=== PATIENT | female | born 1955 ===

== ENCOUNTER 2021-04-13 10:45 | Inpatient (IN) | payer OTHER ==
[~2021-04-13] VITALS: Ht 160 cm; Wt 76.7 kg
[2021-04-13] MEDS ORDERED: PROTONIX40 MG PO (15:13)
[2021-04-13] MEDS ORDERED: PEPCID40 MG PO (15:13)
[2021-04-13] MEDS ORDERED: ALLERGY RELIE15.8 ML NASAL (15:14)
[2021-04-13] MEDS ORDERED: VOLTAREN100 GM TOP (15:14)
[2021-04-13] MEDS ORDERED: CRESTOR40 MG PO (15:14)
[2021-04-19] MEDS ORDERED: CLONAZEPAM1 MG (09:48)
[2021-04-20] MEDS ORDERED: KETO10TA2 PO (14:36)
[2021-04-20] MEDS ORDERED: NEURONTIN300 MG PO (14:37)
== END 2021-04-20 17:55 | disposition home or self-care (01) | DRG 761 ==
LOC: O/R 04-19 06:50 → SURH 04-19 09:45
PROVIDERS: ADMIT Surgery; ATTEND Surgery
PROC: 3E0T3BZ Introduction of Anesthetic Agent into Peripheral Nerves and Plexi, Percutaneous Approach (ICD-10-PCS; 2021-04-19)
PROC: 0JQC3ZZ Repair Pelvic Region Subcutaneous Tissue and Fascia, Percutaneous Approach (ICD-10-PCS; principal; 2021-04-19 09:45)
DX: N81.6 Rectocele (principal); K57.30 Diverticulosis of large intestine without perforation or abscess without bleeding

== ENCOUNTER 2023-04-16 04:45 | Day surgery (SDC) | payer OTHER ==
[~2023-04-16 04:45] MED LIST: ALLERGY RELIE15.8 ML NASAL; CLONAZEPAM1 MG; CRESTO PO; CRESTOR40 MG PO; KETO10TA2 PO; MAGNE PO; NEURONTIN300 MG PO; PEPCID40 MG PO; PROTONIX40 MG PO; VITAMIN D3 PO; VOLTAREN100 GM TOP
[2023-04-16] MEDS ORDERED: MACROBID 100 M100 MG PO (09:18)
[2023-04-16] MEDS ORDERED: TRAM1TAB98 PO (09:19)
== END 2023-04-16 11:10 | disposition home or self-care (01) ==
LOC: CIR.AMB 04:45
PROVIDERS: ATTEND Obstetrics & Gynecology Gynecology
DX: N81.11 Cystocele, midline (principal); N81.6 Rectocele; N81.83 Incompetence or weakening of rectovaginal tissue; Z20.822 Contact with and (suspected) exposure to COVID-19; Z88.6 Allergy status to analgesic agent